=== PATIENT | male | born 1970 | race Hispanic/Latino ===

== ENCOUNTER 2017-05-22 10:01 | Outpatient (CLI) | payer BC ==
--- NOTE | 2017-05-22 11:50 | RAD ---
EIGHT VIEWS OF THE CERVICAL SPINE: DATE: 05/22/17. COMPARISON: None. HISTORY: Neck injury in 2014, chronic pain. FINDINGS: Provided images include open-mouth odontoid view, bilateral oblique views, frontal view, swimmer's la teral view, standard neutral lateral view, flexion lateral view, and extension lateral view. At C5-6, there is mild disk space narrowing and anterior osteophyte formation. The cervicothoracic j unction appears intact on the swimmer's lateral view. The flexion and extension imaging demonstrates no significant anterolisthesis or retrolisthesis. Frontal imaging demonstrates normal alignment. No significant osteophyte encroachment noted on the neural foramina on either side at any level. Ope n-mouth odontoid view demonstrates a normal-appearing dens in C1-2 articulation. No prevertebral sof t tissue swelling. IMPRESSION: Mild degenerative change. No acute findings. If there are radicular symptoms, MRI advised. POS: [facility]
== END 2017-05-22 10:02 | disposition home or self-care (01) ==
LOC: RAD 10:01
PROVIDERS: ATTEND Family Medicine
DX: M54.2 Cervicalgia (principal); M47.892 Other spondylosis, cervical region
CPT/HCPCS: 72052

== ENCOUNTER 2018-08-14 04:08 | Emergency (ER) | payer BC | END 2018-08-14 05:12 | disposition home or self-care (01) | LOC: ERS 04:08 | DX: R42 Dizziness and giddiness (principal) | CPT/HCPCS: 93005 ==